=== PATIENT | male | born 1945 | race Caucasian/White ===

== ENCOUNTER 2016-08-03 12:39 | Day surgery (SDC) | payer OTHER ==
[~2016-08-03] VITALS: Ht 162.6 cm; Wt 61.2 kg
[~2016-08-03 12:39] MED LIST: Ambien PO; Apresoline PO; DIALYVITE 3,001 EACH PO; FISH OIL 1,001000 M2 PO; LO-DOSE ASPIRIN81 M2 PO; PROTONIX40 MG PO; RENVELA800 MG PO; SENSIPAR90 MG PO; SODIUM BICARBO325 MG PO; VITAMIN D31000 UNI2 PO; Vitamin D, Drisdol PO; Zocor PO
[2016-08-03 14:52] LABS: METH RESISTANT S AUREUS PCR NEGATIVE (NEGATIVE)
[2016-08-03 15:03] LABS: PROBE CHECK PASS; SPECIMEN PROCESSING CONTROL PASS
== END 2016-08-03 15:10 | disposition home or self-care (01) ==
LOC: CATH 12:39
PROVIDERS: Surgery
DX: T82.858A Stenosis of other vascular prosthetic devices, implants and grafts, initial encounter (principal); Y83.2 Surgical operation with anastomosis, bypass or graft as the cause of abnormal reaction of the patient, or of later complication, without mention of misadventure at the time of the procedure; Z99.2 Dependence on renal dialysis; I12.0 Hypertensive chronic kidney disease with stage 5 chronic kidney disease or end stage renal disease; N18.6 End stage renal disease; Z87.891 Personal history of nicotine dependence
CPT/HCPCS: 87641; C1725; C1769; C1894; J1644; J2250; J3010

== ENCOUNTER → 2017-03-24 | Outpatient (CLI) | payer MEDICARE, OTHER | END | disposition home or self-care (01) | LOC: CDC 09:20 | DX: Z01.810 Encounter for preprocedural cardiovascular examination (principal); I49.3 Ventricular premature depolarization | CPT/HCPCS: 93000 ==